=== PATIENT | female | born 2005 | race Caucasian/White ===

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

== ENCOUNTER 2024-11-22 15:59 | Emergency (ER) | payer MEDICARE, MEDICAID, SELFPAY ==
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
[2024-11-22 16:15] VITALS: BP 139/84; PULSE 76; RESP 18; TEMP 36.6; O2SAT 100; BMI 18.8
[2024-11-22 16:30] VITALS: BP 131/84; PULSE 79; O2SAT 100
[2024-11-22] MEDS: ACETAMINOPHEN 500MG TAB 1000 MG PO (16:38)
[2024-11-22] MEDS: IBUPROFEN 400 MG TABLET 800 MG PO (16:38)
[2024-11-22] MEDS: METHOCARBAMOL 500MG TABLET 500 MG PO (16:38)
[2024-11-22] MEDS: predniSONE 20MG TAB 60 MG PO (16:39)
[2024-11-22] MEDS: LIDOCAINE 5% TRANSDERMAL PATCH 1 EACH TD (16:39)
--- NOTE | 2024-11-22 16:47 | CT_ITS ---
PROCEDURE INFORMATION: Exam: CT Thoracic Spine Without Contrast Exam date and time: 11/22/2024 5:51 PM Age: 19 years old Clinical indication: Pain in thoracic spine; Additional info: Back pain TECHNIQUE: Imaging protocol: Computed tomography of the thoracic spine without contrast. Radiation optimization: All CT scans at this facility use at least one of these dose optimization techniques: automated exposure control; mA and/or kV adjustment per patient size (includes targeted exams where dose is matched to clinical indication); or iterative reconstruction. COMPARISON: CR XR CHEST 2V 04/25/2019 9:41 PM FINDINGS: Bones/joints: Multiple Schmorl's nodes are present throughout the visualized thoracolumbar spine. Mild degenerative changes are also present manifest by anterior marginal osteophytes, most prominent at the T8-9 level. Posterior marginal osteophytes are also present at the T11-12 level. Vertebral body heights are intact. Posterior mild marginal osteophytes at the T11-12 level produce mild ventral effacement upon the thecal sac and minor central canal stenosis. There is no evidence of acute fracture. Mild degenerative changes involve the visualized lower cervical spine. No large focal disc protrusion. No significant central canal stenosis. Soft tissues: No focal soft tissue hematomas. No significant soft tissue edema. Lungs: Minor small nonspecific ground-glass opacity involves the inferolateral right lower lobe anteriorly. There is a 6 mm ground-glass nodular density in the right lower lobe laterally seen on series 3, image 89 and series 10/1 image 62 and 63. There is a 2.5 mm nodule in the right lower lobe seen on series 3, image 63. There is a 4.4 mm nodule in the right lower lobe seen on series 1001, image 54. The remainder of the visualized lungs are otherwise clear. Pleural spaces: There are no pleural effusions. Heart: The visualized portions of the heart are unremarkable. There is no evidence of pericardial fluid collections. Thyroid: The visualized thyroid gland is normal. Stomach and bowel: The visualized intra-abdominal structures are normal. IMPRESSION: 1. 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 2. Posterior mild marginal osteophytes at the T11-12 level produce mild ventral effacement upon the thecal sac and minor central canal stenosis. 3. Minor small nonspecific ground-glass opacity involves the inferolateral right lower lobe anteriorly. 4. A few small nodular densities in the visualized lung bases. If the patient does not have known cancer, follow up should be based on clinical information because of the low risk of cancer in this age group. (Reference: Mercedez) References: Mercedez Ratliff, et al. Guidelines for Management of Incidental Pulmonary Nodules Detected on CT Images: From the Fleischner Society 2017. Radiology. 2017;284(1):228-243.
[2024-11-22 17:38] LABS: Urine Pregnancy, HCG Qual. Negative (Negative)
[2024-11-22 19:34] VITALS: BP 131/84; PULSE 64; RESP 20; TEMP 36.9; O2SAT 100
== END 2024-11-22 19:37 | disposition home or self-care (01) ==
PROVIDERS: Physician Assistant; Emergency Provider Emergency Medicine
DX: M54.6 Pain in thoracic spine (principal)
CPT/HCPCS: 72128; 81025; 99284

== ENCOUNTER 2025-05-02 17:45 | Emergency (ER) | payer MEDICARE, SELFPAY ==
--- OUTSIDE RECORDS SUMMARY | 2025-04-20 14:00 | XMS_ITS | Encounter Summary ---
Author Organization [place] [address] Care Team Providers Care Appetizer Packer Name Role Phone Tessa Gonzalez APRN Primary Care Provider [phone] Reason for Referral * Ultrasound (Routine) - Pending Review Specialty Diagnoses / Procedures Referred By Contac t Referred To Contact Diagnoses 12 weeks gestation of Procedures PN US OB < 14 WEEKS SINGLE OR FIRST GESTATION Tessa Gonzalez APRN [address] [place] [address] Phone: tel: fax: Referral ID Status Reason Start Date Expiration Date V isits Requested Visits Authorized [id number] Pending Review 04/20/2025 04/20/2026 1 1 Reason for Visit * Reason Comments Nausea Emesis Encounter Details Date Type Department Care Team (Late st Contact Info) Description 04/20/2025 2:00 PM EDT Office Visit [facility] [address] [place] [phone] Tessa Gonzalez APRN [address] [place] [id number] 12 weeks gestation of (Primary Dx); Amenorrhea; Chronic midline thoracic back pain; Moderate intellectual disabilities Social History Tobacco Use Types Packs/Day Years Used Date Smoking Tobacco: Never Passive Smoke Exposure: Yes Smokeless Tobacco: Never Alcohol Use Standard Drinks/Week Comments No 0 (1 standard drink = 0.6 oz pur e alcohol) PHQ-2 Answer Date Recorded PHQ-2 Total Score 0 02/29/2024 Sexually Active Control Partners Comments Never Comments No Sex and Gender Information Value Date Recorded Sex Assigned at Not on file Legal Sex Female 6:39 AM EDT Gender Identity Not on file Sexual Orientation Not on file documented as of this encounter Last Filed Vital Signs Vital Sign Reading Time Taken Comments Blood Pressure 139/85 04/20/2025 2:24 PM EDT Pulse 83 04/20/2025 2:24 PM EDT Temperature 36.5 C (97.7 F) 04/20/2025 2:24 PM EDT Respiratory Rate 18 04/20/2025 2:24 PM EDT Oxygen Saturation 99% 04/20/2025 2:24 PM EDT Inhaled Oxygen Concentration - - Weight 57.2 kg (126 lb) 04/20/2025 2:24 PM EDT Height - - Body Mass Index - - documented in this encounter Ordered Prescriptions Prescription Sig Dispense Quantity Refills Last Filled Start Date End Date pyridoxine, vitamin B6, (B-6) 50 mg Oral TabletIndications: 12 weeks gestation of Take 1 Tablet by mouth every 6 hours as needed for Nausea. 30 Tablet 1 04/20/2025 acetaminophen 325 mg Oral TabIndications:Chr onic midline thoracic back pain Take 2 Tablets by mouth every 4 hours as needed for Pain. 60 Tablet 2 04/20/2025 documented in this encounter Progress Notes * Tessa Gonzalez APRN - 04/20/2025 2:00 PM EDTAssociated Problem(s): Chronic midline thoracic back pain Advised against NSAID use d/t . Rx for tylenol to use as needed Orders: acetaminophen 325 mg Oral Tab; Take 2 Tablets by mouth every 4 hours as needed for Pain. * Tessa Gonzalez APRN - 04/20/2025 2:00 PM EDT Assessment & Plan Amenorrhea LMP 6/5/25 +POCT preg test Orders: POCT URINE TELCOR 12 weeks gestation of -unplanned , not sure if this is welcomed as it comes a shock. They would like to further discuss as a family. They would consider adoption. In the meantime, I will reach out to her psychologist who completed her evaluation two years ago to get their input if she is able to make informed decisions and consents. -although she does have intellectual disabilities, per father, she is her own legal guardian at this time. -will check labs -start PNV -b6 as needed -get ultrasound -get establish with OB. Orders: SCREEN W/ CBC WITH AUTO DIFF; Future PN US OB < 14 WEEKS SINGLE OR FIRST GESTATION; Future pyridoxine, vitamin B6, (B-6) 50 mg Oral Tablet; Take 1 Tablet by mouth every 6 hours as needed forNausea. ACUTE HEPATITIS PANEL; Future HIV AG/AB; Future Chronic midline thoracic back pain Advised against NSAID use d/t . Rx for tylenol to use as needed Orders: acetaminophen 325 mg Oral Tab; Take 2 Tablets by mouth every 4 hours as needed for Pain. Moderate intellectual disabilities Per pt father, she is her own legal guardian Will reach out to her psychologist who performed her evaluation two years ago to get their opinion if she is capable of making informed consents and decisions. Orders: SCREEN W/ CBC WITH AUTO DIFF; Future Progress Note: Vitals: 04/20/25 1424 BP: (!) 139/85 Pulse: 83 Resp: 18 Temp: 97.7 ??F (36.5 ??C) TempSrc: Forehead SpO2: 99% Weight: 126 lb (57.2 kg) There is no height or weight on file to calculate BMI. SUBJECTIVE: Chief Complaint Patient presents with Nausea Emesis HPI: Patient presents to the office today with her father for evaluation of nausea for several days and intermittent vomiting these past two days. Denies UTI sx LMP 01/26/25. Usually has monthly cycles. Is sexually active with a 75 year family friend. Not on control. Did not think about . Does have intellectual disabilities. On disability Can't read. Father is the payee for disability Monse is her own guardian. Review of Systems Constitutional: Negative for fever. HENT: Negative for congestion. Respiratory: Negative for cough, shortness of breath and wheezing. Cardiovascular: Negative for chest pain, palpitations and leg swelling. Gastrointestinal: Positive for nausea and vomiting. Negative for abdominal pain and diarrhea. Skin: Negative for rash and wound. Hematological: Negative for adenopathy. Does not bruise/bleed easily. OBJECTIVE: Results for orders placed or performed in visit on 04/20/25 SCREEN W/ CBC WITH AUTO DIFF Narrative The following orders were created for panel order SCREEN W/ CBC WITH AUTO DIFF. Procedure Abnormality Status --------- ------ ABORH[[id number]] Final result ANTIBODY SCREEN IGG[[id number]] Final result CBC WITH DIFF[[id number]] Abnormal Final result HEPATITIS B SURFACE ANTIGEN[[id number]] Normal Final result RUBELLA ANTIBODY IGG[[id number]] Final result SYPHILIS SCREEN WITH REF...[[id number]] Normal Final result BB HISTORY CHECK[[id number]] Final result Please view results for these tests on the individual orders. ACUTE HEPATITIS PANEL Result Value Ref Range Hep Bs Ag Non-Reactive Non-Reactive Hep B Core IgM Non-Reactive Non-Reactive Hep A IgM Non-Reactive Non-Reactive Hep C Ab Non-Reactive Non-Reactive Narrative Test performed using [employer] electrochemiluminescence immunassay (ECLIA). HIV AG/AB Result Value Ref Range HIV Ag/AB Non-Reactive Non-Reactive Narrative Test performed using [employer] electrochemiluminescence immunassay (ECLIA). CBC WITH DIFF Result Value Ref Range WBC 8.5 3.7 - 10.3 x10(3)/mcL RBC 5.24 (H) 3.90 - 5.20 x10(6)/mcL Hgb 15.5 11.2 - 15.7 g/dL Hct 45.4 (H) 34.0 - 45.0 % MCV 86.6 80.0 - 100.0 fL MCH 29.6 26.0 - 34.0 pg MCHC 34.1 30.7 - 35.5 g/dL RDW 12.2 <=14.9 % Platelet 250 155 - 369 x10(3)/mcL MPV 11.7 8.8 - 12.5 fL Neut Percent 69.0 % Imm Gran% 0.4 % Lymph Percent 21.8 % [place] Percent 5.0 % Eos Percent 3.3 % Baso Percent 0.5 % Neut # 5.9 1.6 - 6.1 x10(3)/mcL IMMGRAN# 0.0 0.0 - 0.1 x10(3)/mcL Lymph # 1.9 1.2 - 3.9 x10(3)/mcL [place] # 0.4 0.3 - 0.9 x10(3)/mcL Eos# 0.3 0.0 - 0.5 x10(3)/mcL Baso # 0.0 0.0 - 0.1 x10(3)/mcL HEPATITIS B SURFACE ANTIGEN Result Value Ref Range Hep Bs Ag Non-Reactive Non-Reactive Narrative Test performed using [employer] electrochemiluminescence immunassay (ECLIA). RUBELLA ANTIBODY IGG Result Value Ref Range Rubella IgG 0.908 Index Value SYPHILIS SCREEN WITH REFLEX RPR QUANT Result Value Ref Range Trep Ab Index 0.04 <=0.99 Index Value POCT URINE TELCOR Result Value Ref Range Preg Test, Ur Positive ABORH Result Value Ref Range ABORH Int A POS ANTIBODY SCREEN IGG Result Value Ref Range ABSC IgG Int Negative BB HISTORY CHECK Result Value Ref Range BB HISTORY CHECK (1) No Previous History Physical Exam HENT: Head: Normocephalic and atraumatic. Cardiovascular: Rate and Rhythm: Normal rate and regular rhythm. Heart sounds: Normal heart sounds. Pulmonary: Effort: Pulmonary effort is normal. Breath sounds: Normal breath sounds. Abdominal: Palpations: Abdomen is soft. Tenderness: There is no abdominal tenderness. Neurological: Mental Status: She is alert and oriented to person, place, and time. Psychiatric: Mood and Affect: Mood normal. Thought Content: Thought content normal. documented in this encounter Plan of Treatment Upcoming Encounters Date Type Department Care Team (Late st Contact Info) Description 05/25/2025 2:20 PM EDT ROUTINE FOLLOW UP OB VISIT [facility] [address] [place], [place] [phone] Mayi Downs, DO [address] [place] [id number] Scheduled Orders Name Type Priority Associated Diagnoses Orde r Schedule PN US OB < 14 WEEKS SINGLE OR FIRST GESTATION Imaging Routine 12 weeks gestation of 1 Occurrences starting 04/20/2025 until 04/20/2026 documented as of this encounter Goals Goal Patient Goal Type Associated Problems Recent Progress Patient-Stated? Author Maintain a healthy diet, exercise regularly and maintain an ideal body weight General No Tessa Gonzalez APRN documented as of this encounter Procedures Procedure Name Priority Date/Time Associated Diagnosis Comments HIV AG/AB Routine 04/20/2025 3:08 PM EDT 12 weeks gestation of BB HISTORY CHECK Routine 04/20/2025 3:08 PM EDT 12 weeks gestation of Moderate intellectual disabilities SYPHILIS SCREEN WITH REFLEX RPR QUANT Routine 04/20/2025 3:08 PM EDT 12 weeks gestation of Moderate intellectual disabilities SCREEN W/ CBC WITH AUTO DIFF Routine 04/20/2025 3:08 PM EDT Moderate intellectual disabilities ACUTE HEPATITIS PANEL Routine 04/20/2025 3:08 PM EDT 12 weeks gestation of ABORH Routine 04/20/2025 3:08 PM EDT 12 weeks gestation of Moderate intellectual disabilities RUBELLA ANTIBODY IGG Routine 04/20/2025 3:08 PM EDT 12 weeks gestation of Moderate intellectual disabilities HEPATITIS B SURFACE ANTIGEN Routine 04/20/2025 3:08 PM EDT 12 weeks gestation of Moderate intellectual disabilities CBC WITH DIFF Routine 04/20/2025 3:08 PM EDT 12 weeks gestation of Moderate intellectual disabilities ANTIBODY SCREEN IGG Routine 04/20/2025 3:08 PM EDT 12 weeks gestation of Moderate intellectual disabilities POCT URINE TELCOR Routine 04/20/2025 2:31 PM EDT Amenorrhea documented in this encounter Results * BB HISTORY CHECK (04/20/2025 3:08 PM EDT) BB HISTORY CHECK (1) No Previous History 04/20/2025 8:04 PM EDT [facility] BLOOD [facility] Blood VENOUS BLOOD / Unknown Venipuncture / Unknown 04/20/2025 3:08 PM EDT 04/20/2025 3:08 PM EDT [facility] BLOOD BANK ORDERABLES Final Result Performing Organization Address [facility] de Phone Number [facility] [place] [address] * SYPHILIS SCREEN WITH REFLEX RPR QUANT (04/20/2025 3:08 PM EDT) Pathologist [facility] Trep Ab Index 0.04 <=0.99 Index Value 04/20/2025 9:19 PM EDT [facility] Comment: < 1.00 - Non-Reactive >=1.00 - Reactive NOTE: All reactive results will be reflexed to Quantitative Non-Treponemal(RPR)test. Blood VENOUS BLOOD / Unknown Venipuncture / Unknown 04/20/2025 3:08 PM EDT 04/20/2025 3:08 PM EDT [facility] [place] CHEMISTRY ORDERABLES Final Result Performing Organization Address [facility] Co de Phone Number [facility] [address] [facility], [place] [address] * RUBELLA ANTIBODY IGG (04/20/2025 3:08 PM EDT) Pathologist [facility] Rubella IgG 0.908 Index Value 04/20/2025 11:18 PM EDT [facility] Comment: < 0.90 - Negative No significant level of detectable rubella IgG Antibody (Presumed Non-Immune) 0.90 to 0.99 - Equivocal Repeat testing in 10-14 days is recommended > or = 1.00 - Positive Previous exposure or vaccination (Immune) Note: The magnitude of the measured result is not indicative of the amount of antibody present. Blood VENOUS BLOOD / Unknown Venipuncture / Unknown 04/20/2025 3:08 PM EDT 04/20/2025 3:08 PM EDT [facility] IMMUNOLOGY ORDERABLES Final Result Performing Organization Address [facility] Co de Phone Number [address] , [place] [address] * HEPATITIS B SURFACE ANTIGEN (04/20/2025 3:08 PM EDT) [facility] Hep Bs Ag Non-Reacti ve Non-React warren 04/20/2025 9:35 PM EDT [facility] Comment:HBsAg not detected. Does not exclude possibility of exposure to HBV. Blood VENOUS BLOOD / Unknown Venipuncture / Unknown 04/20/2025 3:08 PM EDT 04/20/2025 3:08 PM EDT Narrative [facility] - 04/20/2025 9:35 PM EDT Test performed using [employer] electrochemiluminescence immunassay (ECLIA). [facility] CHEMISTRY ORDERABLES Final Result Performing Organization Address [facility] Co de Phone Number [facility] [address] [facility] , [place] [address] * (ABNORMAL) CBC WITH DIFF (04/20/2025 3:08 PM EDT) [facility] WBC 8.5 3.7 - 10.3 x10(3)/mcL 04/20/2025 8:16 PM EDT [facility] [employer] RBC 5.24(H) 3.90 - 5.20 x10(6)/mcL 04/20/2025 8:16 PM EDT [facility] Hgb 15.5 11.2 - 15.7 g/dL 04/20/2025 8:16 PM EDT [facility] Hct 45.4(H) 34.0 - 45.0 % 04/20/2025 8:16 PM EDT [facility] MCV 86.6 80.0 - 100.0 fL 04/20/2025 8:16 PM EDT [facility] MCH 29.6 26.0 - 34.0 pg 04/20/2025 8:16 PM EDT [facility] MCHC 34.1 30.7 - 35.5 g/dL 04/20/2025 8:16 PM EDT [facility] RDW 12.2 <=14.9 % 04/20/2025 8:16 PM EDT [facility] Platelet 250 155 - 369 x10(3)/mcL 04/20/2025 8:16 PM EDT [facility] MPV 11.7 8.8 - 12.5 fL 04/20/2025 8:16 PM EDT [facility] Neut Percent 69.0 % 04/20/2025 8:16 PM EDT [facility] Comment:Neutrophils equals s egs plus bands Imm Gran% 0.4 % 04/20/2025 8:16 PM EDT [facility] Comment:Automated count of m etamyelocytes, myelocytes and promyelocytes. Lymph Percent 21.8 % 04/20/2025 8:16 PM EDT [facility] [place] Percent 5.0 % 04/20/2025 8:16 PM EDT [facility] Eos Percent 3.3 % 04/20/2025 8:16 PM EDT [facility] Baso Percent 0.5 % 04/20/2025 8:16 PM EDT [facility] Neut # 5.9 1.6 - 6.1 x10(3)/mcL 04/20/2025 8:16 PM EDT [facility] Comment:Neutrophils equals s egs plus bands IMMGRAN# 0.0 0.0 - 0.1 x10(3)/mcL 04/20/2025 8:16 PM EDT [facility] [employer] [facility] Comment:Automated count of m etamyelocytes, myelocytes and promyelocytes. An absolute IG <0.1 is reported as 0.0. Lymph # 1.9 1.2 - 3.9 x10(3)/mcL 04/20/2025 8:16 PM EDT [facility] [place] # 0.4 0.3 - 0.9 x10(3)/mcL 04/20/2025 8:16 PM EDT [facility] Eos# 0.3 0.0 - 0.5 x10(3)/mcL 04/20/2025 8:16 PM EDT [facility] Baso # 0.0 0.0 - 0.1 x10(3)/mcL 04/20/2025 8:16 PM EDT [facility] LAB [employer] [facility] Blood VENOUS BLOOD / Unknown Venipuncture / Unknown 04/20/2025 3:08 PM EDT 04/20/2025 3:08 PM EDT [facility] HEMATOLOGY ORDERABLES Final Result [facility] [employer] [facility] [address] [facility], [place] [address] * ANTIBODY SCREEN IGG (04/20/2025 3:08 PM EDT) [facility] ABSC IgG Int Negative 04/20/2025 10:04 PM EDT [facility] BLOOD BANK Blood VENOUS BLOOD / Unknown Venipuncture / Unknown 04/20/2025 3:08 PM EDT 04/20/2025 3:08 PM EDT [email or web address] ORDERABLES Final Result [facility] BLOOD BANK [address] [place] [address] * ABORH (04/20/2025 3:08 PM EDT) Pathologist [facility] ABORH Int A POS 04/20/2025 10:04 PM EDT [facility] BLOOD BANK Blood VENOUS BLOOD / Unknown Venipuncture / Unknown 04/20/2025 3:08 PM EDT 04/20/2025 3:08 PM EDT [facility] BLOOD BANK ORDERABLES Final Result Performing Organization Address [facility] Co de Phone Number [facility] BLOOD BANK [address] [place] [id number] * HIV AG/AB (04/20/2025 3:08 PM EDT) HIV Ag/AB Non-Reacti ve Non-Reacti ve 04/20/2025 9:35 PM EDT [facility] [employer] [facility] Comment:Negative for HIV-1 a ntigen and anti-HIV-1/anti-HIV-2 antibodies. Blood VENOUS BLOOD / Unknown Venipuncture / Unknown 04/20/2025 3:08 PM EDT 04/20/2025 3:08 PM EDT Narrative [facility] [employer] [facility] - 04/20/2025 9:35 PM EDT Test performed using [employer] electrochemiluminescence immunassay (ECLIA). [facility] IMMUNOLOGY ORDERABLES Final Result Performing Organization Address [facility] Co de Phone Number [facility] [employer] [address] [facility], [place] [address] * ACUTE HEPATITIS PANEL (04/20/2025 3:08 PM EDT) Hep Bs Ag Non-Reacti ve Non-React warren 04/20/2025 9:35 PM EDT [facility] [employer] [facility] Comment:HBsAg not detected. Does not exclude possibility of exposure to HBV. Hep B Core IgM Non-Reacti ve Non-React warren 04/20/2025 9:35 PM EDT [facility] Hep A IgM Non-Reacti ve Non-React warren 04/20/2025 9:35 PM EDT [facility] Hep C Ab Non-Reacti ve Non-React warren 04/20/2025 9:35 PM EDT [facility] Comment:No antibodies to HCV detected. Does not exclude possibility of exposure to HCV. Blood VENOUS BLOOD / Unknown Venipuncture / Unknown 04/20/2025 3:08 PM EDT 04/20/2025 3:08 PM EDT Narrative [facility] [employer] - 04/20/2025 9:35 PM EDT Test performed using [employer] electrochemiluminescence immunassay (ECLIA). Tessa Gonzalez APRN CHEMISTRY ORDERABLES Final Result [facility] [employer] [address] [facility] , [place] [address] * POCT URINE TELCOR (04/20/2025 2:31 PM EDT) Preg Test, Ur Positive 04/20/2025 2:34 PM EDT [facility] [place] Urine STRUCTURE OF URINARY TRACT PROPER / Unknown 04/20/2025 2:31 PM EDT 04/20/2025 2:34 PM EDT Tessa Gonzalez APRN POINT OF CARE TEST ORDERABL ES Final Result Performing Organization Address [facility] Co de Phone Number [facility] [address] [place] [address] 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 DELETE-Therapy completed 03/01/2024 04/20/2025 methocarbamoL (ROBAXIN) 750 mg Oral Tablet Take 750 mg by mouth every 6 hours as needed. for muscle spasm DELETE-Therapy completed 11/22/2024 04/20/2025 documented as of this encounter Care Teams Appetizer Packer Relationship Specialty Start Date End Date Tessa Gonzalez [place] [place] [address] PCP - General Nurse Practitioner-Family 05/01/21 documented as of this encounter
--- OUTSIDE RECORDS SUMMARY | 2025-04-27 15:20 | XMS_ITS | Encounter Summary ---
Author Organization [place] [address] Care Team Providers Care Reed Cleaner Name Role Phone Tessa Gonzalez APRN Primary Care Provider [phone] Reason for Referral * Ultrasound (Urgent) - Pending Review Specialty Diagnoses / Procedures Referred By Contac t Referred To Contact Diagnoses Encounter for supervision of normal first , first trimester Procedures PN US < 14 WK W TRANSVAGINAL Mayi Downs DO [address] [place] [address] Phone: tel: fax: Referral ID Status Reason Start Date Expiration Date V isits Requested Visits Authorized [id number] Pending Review 04/27/2025 04/27/2026 1 1 * Consultation (Routine) - Pending Review Specialty Diagnoses / Procedures Referred By Contac t Referred To Contact Genetics Diagnoses Encounter for supervision of normal first , first trimester Procedures [place] OFFICE/OUTPATIENT NEW MODERATE MDM 45 MINUTES Mayi Downs DO [address] [place] [address] Phone: tel: fax: [facility] [address] [place] [address] Phone: tel: fax: Referral ID Status Reason Start Date Expiration Date V isits Requested Visits Authorized [id number] Pending Review 04/27/2025 04/27/2026 99 99 Question Answer Is this for the Multi-Cancer Early Detection blood test? No Comments Patient interested in genetic screening for Reason for Visit * Reason Comments Routine Visit Encounter Details Date Type Department Care Team (Late st Contact Info) Description 04/27/2025 3:20 PM EDT INITIAL VISIT SEP Erik [address] [employer] [place] [phone] Mayi Downs DO [address] [place] [id number] Encounter for supervision of normal first , first trimester (Primary Dx); Positive test; Rubella non-immune status, antepartum; Learning disability; Chronic midline low back pain without sciatica; High risk social situation Social History Tobacco Use Types Packs/Day Years Used Date Smoking Tobacco: Never Passive Smoke Exposure: Yes Smokeless Tobacco: Never Tobacco Cessation:Counseling Given: Not Answered Alcohol Use Standard Drinks/Week Comments No 0 (1 standard drink = 0.6 oz pur e alcohol) PHQ-2 Answer Date Recorded PHQ-2 Total Score 0 02/29/2024 Sexually Active Control Partners Comments Never Comments Yes Sex and Gender Information Value Date Recorded Sex Assigned at Not on file Legal Sex Female 6:39 AM EDT Gender Identity Not on file Sexual Orientation Not on file documented as of this encounter Last Filed Vital Signs Vital Sign Reading Time Taken Comments Blood Pressure 128/70 04/27/2025 2:44 PM EDT Pulse 103 04/27/2025 2:44 PM EDT Temperature 37.3 C (99.1 F) 04/27/2025 2:44 PM EDT Respiratory Rate 18 04/27/2025 2:44 PM EDT Oxygen Saturation 99% 04/27/2025 2:44 PM EDT Inhaled Oxygen Concentration - - Weight 57.2 kg (126 lb) 04/27/2025 2:44 PM EDT Height 157.5 cm (5' 2 ) 04/27/2025 2:44 PM EDT Body Mass Index 23.05 04/27/2025 2:44 PM EDT documented in this encounter Progress Notes * Mayi Downs DO - 04/27/2025 4:58 PM EDTAssociated Problem(s): Rubella non-immune status, antepartum Will need vaccination after * Mayi Downs DO - 04/27/2025 3:20 PM EDT Initial Visit Care Subjective PATIENT: Monse Tolliver : 2005 Monse Tolliver is a 20 y.o. female presenting for follow-up obstetrical visit. She is a . Patient's last menstrual period was 01/26/2025. Discussed with patient today her degree of intellectualdisability. Patient reports father has control of her finances which she makes all her own day-to-day decisions and medical decisions according to her and her mother who is in the room today. Father of the baby is 78 years old and mother reports that he is well has intellectual disability. Patient reported that she wanted to have sex but did not want to have sex as often as he did. She then reports during sexual encounter she asked patient if he had a condom on and he said yes but now patient is unsure if that was true. She reports there would be time frames that she would tell him to stop and he would during their encounters. It seems to be unclear at this time whether patient was truly consenting. Patient reports her last menstrual cycle was about 3 months ago and states that she thinksshe is about 3 months along. Objective BP 128/70 Pulse 103 Temp 99.1 ??F (37.3 ??C) (Temporal) Resp 18 Ht 5' 2 (1.575 m) Wt 126lb (57.2 kg) LMP 01/26/2025 SpO2 99% No BMI 23.05 kg/m?? Cardiovascular: Normal rate Respiratory: Normal effort MSK: No pitting edema noted FHT: Unable to find in office Urine dipstick Results for orders placed or performed in visit on 04/27/25 CHLAMYDIA/GC Specimen: Urine, Random Narrative The following orders were created for panel order CHLAMYDIA/GC. Procedure Abnormality Status --------- ------ CHLAMYDIA/GC BY [facility][[id number]] In process Please view results for these tests on the individual orders. SEP URINALYSIS POC Result Value Ref Range UA Color POC Yellow Color UA Appear POC Clear Clear UA Gluc POC Negative Negative mg/dL UA Bili POC Negative Negative UA Ketones POC Negative Negative mg/dL UA SG POC 1.020 1.001 - 1.035 no units UA Blood POC Negative Negative UA pH POC 7.0 5.0 - 8.0 pH UA Protein POC Negative Negative mg/dL UA Urobilinogen POC 0.2 0.2, 1.0 UA Nitrite POC Positive (A) Negative UA Leuk Est POC Trace (A) Negative Current Labs and Ultrasound Recent Results (from the past 36 weeks) SYPHILIS SCREEN WITH REFLEX RPR QUANT Collection Time: 04/20/25 3:08 PM Result Value Ref Range Trep Ab Index 0.04 <=0.99 Index Value RUBELLA ANTIBODY IGG Collection Time: 04/20/25 3:08 PM Result Value Ref Range Rubella IgG 0.908 Index Value HEPATITIS B SURFACE ANTIGEN Collection Time: 04/20/25 3:08 PM Result Value Ref Range Hep Bs Ag Non-Reactive Non-Reactive Narrative Test performed using [employer] electrochemiluminescence immunassay (ECLIA). ANTIBODY SCREEN IGG Collection Time: 04/20/25 3:08 PM Result Value Ref Range ABSC IgG Int Negative ABORH Collection Time: 04/20/25 3:08 PM Result Value Ref Range ABORH Int A POS HIV AG/AB Collection Time: 04/20/25 3:08 PM Result Value Ref Range HIV Ag/AB Non-Reactive Non-Reactive Narrative Test performed using [employer] electrochemiluminescence immunassay (ECLIA). The following are the results for your labs from the Office Visit encounter on 04/20/25: 1. HIV AG/AB Result Value Ref Range HIV Ag/AB Non-Reactive Non-Reactive Narrative Test performed using [employer] electrochemiluminescence immunassay (ECLIA). 2. BB HISTORY CHECK Result Value Ref Range BB HISTORY CHECK (1) No Previous History 3. SYPHILIS SCREEN WITH REFLEX RPR QUANT Result Value Ref Range Trep Ab Index 0.04 <=0.99 Index Value 4. SCREEN W/ CBC WITH AUTO DIFF Narrative The following orders were created for panel order SCREEN W/ CBC WITH AUTO DIFF. Procedure Abnormality Status --------- ------ ABORH[[id number]] Final result ANTIBODY SCREEN IGG[[id number]] Final result CBC WITH DIFF[[id number]] Abnormal Final result HEPATITIS B SURFACE ANTIGEN[[id number]] Normal Final result RUBELLA ANTIBODY IGG[[id number]] Final result SYPHILIS SCREEN WITH REF...[[id number]] Normal Final result BB HISTORY CHECK[[id number]] Final result Please view results for these tests on the individual orders. 5. ABORH Result Value Ref Range ABORH Int A POS 6. RUBELLA ANTIBODY IGG Result Value Ref Range Rubella IgG 0.908 Index Value 7. HEPATITIS B SURFACE ANTIGEN Result Value Ref Range Hep Bs Ag Non-Reactive Non-Reactive Narrative Test performed using [employer] electrochemiluminescence immunassay (ECLIA). 8. CBC WITH DIFF Result Value Ref Range [...] Gran% 0.4 % Lymph Percent 21.8 % [place] Percent 5.0 % Eos Percent 3.3 % Baso Percent 0.5 % Neut # 5.9 1.6 - 6.1 x10(3)/mcL IMMGRAN# 0.0 0.0 - 0.1 x10(3)/mcL Lymph # 1.9 1.2 - 3.9 x10(3)/mcL [place] # 0.4 0.3 - 0.9 x10(3)/mcL Eos# 0.3 0.0 - 0.5 x10(3)/mcL Baso # 0.0 0.0 - 0.1 x10(3)/mcL 9. ANTIBODY SCREEN IGG Result Value Ref Range ABSC IgG Int Negative Lab Results Component Value Date HEPBSAG Non-Reactive 04/20/2025 HEPBSAG Non-Reactive 04/20/2025 HEPAIGM Non-Reactive 04/20/2025 HEPBIGM Non-Reactive 04/20/2025 HEPCAB Non-Reactive 04/20/2025 No results found for: HGBA1C UDS: No results found for: 6AMHEROIN , AMPHETAMINES , LABBARB , LABBENZ , CANNABINOIDM , COCAINEMETAB , FENTANYL , METHADONEAND , OPIATE , OXYCODONELVL , URINECREATIN Anemia Screening: Lab Results Component Value Date WBC 8.5 04/20/2025 HGB 15.5 04/20/2025 HCT 45.4 (H) 04/20/2025 MCV 86.6 04/20/2025 PLT 250 04/20/2025 Gonorrhea Screening: No results found for: NEISSERIAGON Chlamydia Screening: No results found for: CHLAMYDIATRA Genetic screening: Discussed: Yes Genetic counseling referral made Initial Ultrasound: Date: ordered Need for Rhogam at 28 weeks: Lab Results Component Value Date ABORH A POS 04/20/2025 Rhogam not needed DETECTIVE History OB History Para Term AB Living 1 0 0 0 0 0 SAB IAB Ectopic Multiple Live Births 0 0 0 0 0 # Outcome Date GA Lbr John/2nd Weight Sex Type Anes PTL Lv 1 Current Monse Tolliver is a 20 y.o. female Seen today for her obstetrical visit. Primary OB physician is . She is considered Moderate Risk OB due to the following factors: Assessment Diagnoses and all orders for this visit: Encounter for supervision of normal first , first trimester - HUMAN CHORIONIC GONADOTROPIN QUANTITATIVE; Future - SEP URINALYSIS POC - CHLAMYDIA/GC; Future - AMB REFERRAL TO GENETIC COUNSELING - PN US < 14 WK W TRANSVAGINAL; Future - URINE CULTURE (NO STAIN); Future Positive test - HUMAN CHORIONIC GONADOTROPIN QUANTITATIVE; Future Rubella non-immune status, antepartum Assessment & Plan: Will need vaccination after Learning disability Overview: Father controls finances Chronic midline low back pain without sciatica - XR LUMBAR SPINE AP AND LATERAL; Future High risk social situation Mayi Downs, DO Family Medicine 04/27/2025 documented in this encounter Plan of Treatment Upcoming Encounters Date Type Department Care Team (Late st Contact Info) Description 05/25/2025 2:20 PM EDT ROUTINE FOLLOW UP OB VISIT [facility] [place] [facility] [address] [place], [place] [id number] Mayi Downs DO [address] [place] [address] Scheduled Orders Name Type Priority Associated Diagnoses Orde r Schedule XR LUMBAR SPINE AP AND LATERAL Imaging Routine Chronic midline low back pain without sciatica 1 Occurrences starting 04/27/2025 until 04/27/2026 PN US < 14 WK W TRANSVAGINAL Imaging QUINTIN Encounter for supervision of normal first , first trimester 1 Occurrences starting 04/27/2025 until 04/27/2026 Scheduled Referrals Name Type Priority Associated Diagnoses Orde r Schedule AMB REFERRAL TO GENETIC COUNSELING Outpatient Referral Routine Encounter for supervision of normal first , first trimester Ordered: 04/27/2025 documented as of this encounter Goals Goal Patient Goal Type Associated Problems Recent Progress Patient-Stated? Author Maintain a healthy diet, exercise regularly and maintain an ideal body weight General No eTssa Gonzalez APRN documented as of this encounter Procedures Procedure Name Priority Date/Time Associated Diagnosis Comments HUMAN CHORIONIC GONADOTROPIN QUANTITATIVE Routine 04/27/2025 3:42 PM EDT Positive test Encounter for supervision of normal first , first trimester CHLAMYDIA/GC Routine 04/27/2025 3:25 PM EDT Encounter for supervision of normal first , first trimester CHLAMYDIA/GC BY TMA Routine 04/27/2025 3 :25 PM EDT Encounter for supervision of normal first , first trimester URINE CULTURE (NO STAIN) Routine 04/27/2025 3:25 PM EDT Encounter for supervision of normal first , first trimester SEP URINALYSIS POC Routine 04/27/2025 3: 07 PM EDT Encounter for supervision of normal first , first trimester documented in this encounter Results * (ABNORMAL) HUMAN CHORIONIC GONADOTROPIN QUANTITATIVE (04/27/2025 3:42 PM EDT) Pathologist [facility] [place] Hcg Quant 10,378(H) <5 mIU/mL 04/28/2025 12:30 AM EDT [facility] Blood VENOUS BLOOD / Unknown Venipuncture / Unknown 04/27/2025 3:42 PM EDT 04/27/2025 3:42 PM EDT Narrative [facility] - 04/28/2025 12:30 AM EDT Female (non-): 0-4.9 mIU/mL Female (postmenopausal): 0-8.1 mIU/mL Indeterminate values for (e.g., 5-25 mIU/mL) may be confirmed with a repeat test in 48-72 hours. Values in should double every 2-3 days for the first six weeks. Ingestion of jorge doses of biotin (>5 mg/day) taken within 8 hours of drawing blood sample can interfere with this immunoassay test. us Mayi Downs DO CHEMISTRY ORDERABLES Final R esult [facility] [address] [facility] , [address] [place] [id number] * CHLAMYDIA/GC BY TMA (04/27/2025 3:25 PM EDT) [facility] Chlamydia trachomatis Not Detected Not Detected 04/28/2025 4:05 AM EDT [facility] Neisseria gonorrhoeae Not Detected Not Detected 04/28/2025 4:05 AM EDT [facility] Urine STRUCTURE OF URINARY TRACT PROPER / Unknown 04/27/2025 3:25 PM EDT 04/27/2025 3:25 PM EDT Narrative [facility] - 04/28/2025 4:05 AM EDT Testing methodology is laboratory scientist mediated amplification (TMA) using the Aptima Combo 2 assay from [employer]. A negative result does not completely rule out a Chlamydia trachomatis or Neisseria gonorrhoeae infection due to potential inhibitors or levels present below the limit of detection by this assay. Results are dependent on proper collection and transport of specimen. This test is indicated for medical purposes only and should not be used for legal or forensic purposes. The performance characteristics of this assay were validated by the testing laboratory. This assay is FDA cleared to test the following specimens: clinician-collected endocervical, vaginal, male urethral swab specimens, rectal swabs, and throat/pharyngeal swabs; patient collected vaginal specimens within a clinic setting; Thin Prep Specimens in PreservCyt Solution; and first-stream, unpreserved male and female urine specimens. Detailed methodology is available upon request. us Mayi Downs DO MICROBIOLOGY - GENERAL ORDER [place] Final Result [facility] [address] [facility] , [address] [place], [place] [id number] * (ABNORMAL) URINE CULTURE (NO STAIN) (04/27/2025 3:25 PM EDT) Culture Positive Growth(A) 04/30/2025 10:57 AM EDT [facility] Culture >100,000 CFU/mL Escherichia coli SUSCEPTIBI LITY RESULT 04/30/2025 10:57 AM EDT [facility] Urine STRUCTURE OF URINARY TRACT PROPER / Unknown 04/27/2025 3:25 PM EDT 04/27/2025 3:25 PM EDT Narrative Organism Antibiotic Method Susceptibility Escherichia coli Amikacin SUSCEPTIBILITY RESULT Escherichia coli Amoxicillin/Clavulanate SUSCEPTIBILIT Y RESULT <=8/4 ug/mL: Susceptible Escherichia coli Ampicillin SUSCEPTIBILITY RESULT <=8 ug/mL: Susceptible Escherichia coli Ampicillin/Sulbactam SUSCEPTIBILITY R ESULT <=4/2 ug/mL: Susceptible Escherichia coli Aztreonam SUSCEPTIBILITY RESULT <=4 ug/mL: Susceptible Escherichia coli Cefazolin SUSCEPTIBILITY RESULT <=2 ug/mL: Susceptible Escherichia coli Cefepime SUSCEPTIBILITY RESULT Escherichia coli Cefotaxime SUSCEPTIBILITY RESULT Escherichia coli Cefoxitin SUSCEPTIBILITY RESULT <=8 ug/mL: Susceptible Escherichia coli Ceftazidime SUSCEPTIBILITY RESULT Escherichia coli Ceftazidime/Avibactam SUSCEPTIBILITY RESULT Escherichia coli Ceftolozane/Tazobactam SUSCEPTIBILITY RESULT Escherichia coli Ceftriaxone SUSCEPTIBILITY RESULT Escherichia coli Cefuroxime SUSCEPTIBILITY RESULT Escherichia coli Ciprofloxacin SUSCEPTIBILITY RESULT >2 ug/mL: Resistant Escherichia coli Ertapenem SUSCEPTIBILITY RESULT <=0.5 ug/mL: Susceptible Escherichia coli Gentamicin SUSCEPTIBILITY RESULT <=2 ug/mL: Susceptible Escherichia coli Imipenem SUSCEPTIBILITY RESULT <=1 ug/mL: Susceptible Escherichia coli Levofloxacin SUSCEPTIBILITY RESULT >4 ug/mL: Resistant Escherichia coli Meropenem SUSCEPTIBILITY RESULT <=1 ug/mL: Susceptible Escherichia coli Meropenem/Vaborbactam SUSCEPTIBILITY RESULT Escherichia coli Minocycline SUSCEPTIBILITY RESULT Escherichia coli Moxifloxacin SUSCEPTIBILITY RESULT Escherichia coli Nitrofurantoin SUSCEPTIBILITY RESULT <=32 ug/mL: Susceptible Escherichia coli Piperacillin/Tazobactam SUSCEPTIBILIT Y RESULT <=8 ug/mL: Susceptible Escherichia coli Tetracycline SUSCEPTIBILITY RESULT >8 ug/mL: Resistant Escherichia coli Tigecycline SUSCEPTIBILITY RESULT Escherichia coli Tobramycin SUSCEPTIBILITY RESULT <=2 ug/mL: Susceptible Escherichia coli Trimethoprim/Sulfame tho xazole SUSCEPTIBILITY RESULT 1/19 ug/mL: Susceptible Mayi Downs DO MICROBIOLOGY - GENERAL ORDER [place] Final Result PREFERRED LAB the grafter, for; to (do) Centers [address] [facility] , [place] [address] * (ABNORMAL) SEP URINALYSIS POC (04/27/2025 3:07 PM EDT) UA Color POC Yellow Color 04/27/2025 3:09 PM EDT SEP [place] UA Appear POC Clear Clear 04/27/2025 3:09 PM EDT SEP [place] UA Gluc POC Negative Negative mg/dL 04/27/2025 3:09 PM EDT SEP [place] UA Bili POC Negative Negative 04/27/2025 3:09 PM EDT SEP [place] UA Ketones POC Negative Negative mg/dL 04/27/2025 3:09 PM EDT SEP [place] UA SG POC 1.020 1.001 - 1.035 no units 04/27/2025 3:09 PM EDT SEP [place] UA Blood POC Negative Negative 04/27/2025 3:09 PM EDT SEP [place] UA pH POC 7.0 5.0 - 8.0 pH 04/27/2025 3:09 PM EDT SEP [place] UA Protein POC Negative Negative mg/dL 04/27/2025 3:09 PM EDT SEP [place] UA Urobilinogen POC 0.2 0.2, 1.0 04/27/2025 3:09 PM EDT SEP [place] UA Nitrite POC Positive(A) Negative 3:09 PM EDT SEP [place] UA Leuk Est POC Trace(A) Negative 3:09 PM EDT SEP [place] Urine STRUCTURE OF URINARY TRACT PROPER / Unknown 04/27/2025 3:07 PM EDT 04/27/2025 3:09 PM EDT Mayi Downs DO POINT OF CARE TEST ORDERABLE S Final Result [facility] [place] [address] documented in this encounter Visit Diagnoses Diagnosis Encounter for supervision of normal first , first trimester- Primary Positive test examination or test, positive result Rubella non-immune status, antepartum Other specified complication, antepartum Learning disability Other specific developmental learning difficulties Chronic midline low back pain without sciatica High risk social situation Other problems related to lifestyle documented in this encounter Historical Medications * This list may reflect changes made after this encounter. vit [id number] 27 mg iron- 800 mcg Oral TabletIndications: Encounter for supervision of normal first , first trimester Take 1 Tablet by mouth daily. added in this encounter Care Teams Reed Cleaner Relationship Specialty Start Date End Date Tessa Gonzalez [place] [address] [place] [address] PCP - General Nurse Practitioner-Family 05/01/21 documented as of this encounter
[2025-05-02 17:48] VITALS: BP 142/82; PULSE 88; RESP 18; TEMP 36.9; O2SAT 100; BMI 24.6
--- NOTE | 2025-05-02 18:07 | ED_ITS ---
Discharge Plan Disposition Patient Disposition: Home, Self-Care Condition: Good Prescriptions Prescriptions: New misoprostol [Cytotec] 200 mcg tablet 1,200 mcg vaginal Q12H Qty: 6 0RF oxycodone 5 mg tablet 5 mg PO DAILY Qty: 3 0RF No Action ondansetron 4 mg tablet,disintegrating 4 mg PO Q8H PRN (Reason: nausea and vomiting) Qty: 10 0RF methocarbamol 750 mg tablet 750 mg PO Q6H PRN (Reason: muscle spasm) Qty: 20 0RF Referrals Follow up/Referrals: Janis Campbell DO [Staff Physician, [employer]] - See instructions Provider,Referral, MD [Primary Care Provider, Medical] - See instructions Activity Restrictions/Add. Instructions Additional Instructions/Restrictions: You can call Dr. Campbell in the morning to schedule follow-up. You should take 600 mg or 3 tablets vaginally at home and if you develop bleeding you do not need to take the additional dose. If you do not develop bleeding after the initial 600 mg take the additional 3 tablets vaginally in 4 hours. You should expect bleeding and cramping. You can take Tylenol and Motrin as needed. I have sent you with additional pain medications if needed for pain control which you can take for break through pain. Clinical Impressions Clinical Impression: Incomplete miscarriage Print Language Print Language: Mohawk Discharge ED Provider: Lupe Christian General Adult HPI General Chief complaint: Vaginal Bleeding Stated complaint: 12 weeks and bleeding Time Seen by Provider: 05/02/25 17:50 Mode of Arrival: Ambulatory Source of Information: Patient and Parent(s) Description of Symptoms (Recalled from ER Triage Doc. by RN): jamee presents to the ED for evaluation of vaginal bleeding. patient is currently 12 weeks . The bleeding started yesterday. Patient endorses going through one peripad every couple hours. The patient denies passing blood clots. Patient also endorses lightheadedness. History of Present Illness HPI narrative: Patient is a 20-year-old female who is a G1, P0 who presented to the emergency department with hematuria and vaginal bleeding. Patient states that her last menstrual period was January, patient states that she is about 12 weeks . Patient states that she had bleeding that started today. Patient states that she was recently seen by her OB doctor 1 week ago was given oral antibiotics for urinary tract infection. Patient states that she has not had an ultrasound done. Patient denies any medical problems. Denies any urinary symptoms. Related Data Previous Rx's ?Medication ?Instructions ?Recorded ondansetron 4 mg disintegrating 4 mg PO Q8H PRN nausea and 07/09/22 tablet vomiting #10 tabs methocarbamol 750 mg tablet 750 mg PO Q6H PRN muscle s pasm #20 11/22/24 tabs misoprostol 200 mcg tablet 1,200 mcg (6 x 200 mcg) vag inal 05/02/25 (Cytotec) Q12H #6 tabs oxycodone 5 mg tablet 5 mg PO DAILY #3 tabs Allergies Allergy/AdvReac Type Severity Reaction Status Date / Time No Known Allergies Allergy Verified 07/02/22 15:55 [facility] Disclaimer: The information contained in this section may have been updated after the patient was seen, as this information can be updated by other users. Medical History (Updated 05/02/25 @ 22:34 by Lupe Christian DO) No significant past medical history Social History Smoking Status: Never smoker alcohol intake: never current occupational status: student Travel in the last 8 weeks?: None Have you lived/traveled outside [place] in past 30 days?: No Contact w/someone who lives/traveled outside US past 30 days?: No Exposure to someone with infectious disease in past 14 days?: No Do you have a fever (greater than 100.4 F or 38 C)?: No Have you tested positive for COVID-19?: No Exposed to someone with COVID-19 in past 14 days?: No Do you have a sore throat?: No Do you have a cough?: No Do you have any weakness?: No Do you have any diarrhea?: No Are you experiencing any unusual bleeding?: No Do you have any muscle aches/pain?: No Do you have any abdominal pain?: No Are you experiencing loss of taste or smell?: No Other Medical History Have you received the Flu Vaccine for this season: No Have you received the Pneumonia Vaccine: No ROS Obtained: Yes All systems reviewed & no additional complaints except as documented and Yes Systems reviewed as appropriate & no additional complaints except as documented Physical Exam General General appearance: alert and in no apparent distress Head Head exam: atraumatic, normocephalic and normal inspection Eye Eye exam: Present normal appearance, PERRL and EOMI; Absent scleral icterus ENT ENT exam: Present normal exam and normal external ear exam Neck Neck exam: Present normal inspection and full ROM Chest Chest inspection: Present normal inspection and symmetric chest wall rise Respiratory Respiratory exam: Present normal lung sounds bilaterally; Absent respiratory distress or wheezes Cardiovascular Cardiovascular exam: Present regular rate, normal rhythm and normal heart sounds Abdominal Exam Abdominal exam: Present soft and distention; Absent tenderness, guarding or rebound Extremities Exam Extremities exam: Present normal inspection and full ROM Back Exam Back exam: Present normal inspection and full ROM Neurological Exam Neurological exam: Present alert and oriented X3 Psychiatric Psychiatric exam: Present normal affect and normal mood Skin Skin exam: Present warm and dry Medical Decision Making Medical Records Medical records reviewed: Yes I reviewed the patient's medical records. Screening: Per USPSTF and CDC recommendations, given the prevalence of disease in our region, it is our hospital?s policy to screen for HIV and viral Hepatitis for all patients aged 18 and over and those with ongoing risk factors. Jose Inquiry Pt receiving controlled substance: No Vital Signs: 05/02/25 17:48 05/02/25 20:00 05/02/25 20:30 Temperature 98.5 F Temperature Source Temporal Artery Scan Pulse Rate 75 85 Pulse Rate [Right Radial] 88 Respiratory Rate 18 15 17 Blood Pressure 129/95 H 135/80 Blood Pressure [Right Arm] 142/82 H Blood Pressure Mean 94 Blood Pressure Mean [Right Arm] 102 Blood Pressure Source Blood Pressure Source [Right Arm] Automatic Cuff Blood Pressure Position Blood Pressure Position [Right Arm] Sitting 02 Sat by Pulse Oximetry 100 100 99 Oxygen Delivery Method Room Air Room Air 05/02/25 21:30 05/02/25 22:38 Temperature 98.7 F Temperature Source Oral Pulse Rate 86 74 Pulse Rate [Right Radial] Respiratory Rate 13 16 Blood Pressure 137/94 H 128/74 Blood Pressure [Right Arm] Blood Pressure Mean Blood Pressure Mean [Right Arm] Blood Pressure Source Automatic Cuff Blood Pressure Source [Right Arm] Blood Pressure Position Supine Blood Pressure Position [Right Arm] 02 Sat by Pulse Oximetry 98 Oxygen Delivery Method Room Air Room Air Lab Data Lab results reviewed: Yes I reviewed the patient's lab results. Lab Results 05/02/25 18:30: WBC 9.4, RBC 4.66, Hgb 14.1, Hct 39.5, MCV 84.8, MCH 30.3, MCHC 35.7 H, RDW 11.8, Plt Count 249, MPV 10.3, Neut % (Auto) 68.6, Lymph % (Auto) 22.4, [place] % (Auto) 4.2, Eos % (Auto) 4.2, Baso % (Auto) 0.3, Neut # (Auto) 6.5, Lymph # (Auto) 2.1, [place] # (Auto) 0.4, Eos # (Auto) 0.4, Baso # (Auto) 0.0, PT 11.4, INR 1.03, Sodium 138, Potassium 3.8, Chloride 105, Carbon Dioxide 24, Anion Gap 12.8, BUN 7, Creatinine 0.60, Estimated Creat Clear 134, Estimated GFR 126, Est GFR ( Amer) 153, Glucose 114 H, Calcium 9.6, Total Bilirubin 0.5, AST 31, ALT 16, Alkaline Phosphatase 52, Total Protein 7.5, Albumin 4.5, Globulin 3.0, Albumin/Globulin Ratio 1.5, HCG, Quant 4479 H 05/02/25 18:40: Urine Color Yellow, Urine Appearance Sl cloudy, Urine pH 6.0, Ur Specific [place] 1.020, Urine Protein Negative, Urine Glucose (UA) Negative, Urine Ketones Negative, Urine Blood 1+ A, Urine Nitrate Negative, Urine Bilirubin Negative, Urine Urobilinogen 2.0, Ur Leukocyte Esterase 1+ A, Urine RBC Occasional, Urine WBC 5-10, Ur Squamous Epith Cells 5-10, Urine Bacteria 2+ 05/02/25 21:04: Blood Type A Positive, Antibody Screen Negative 05/02/25 18:30 05/02/25 18:30 Orders (Tests/Meds): ORDERS Category Date Time Status Type and Screen Stat BBK 05/02/25 21:04 Completed POCUS Point of Care (ER Only) Stat Exams 05/02/25 17:57 Completed CBC w/Auto Diff [Complete Blood Count Auto Diff] Stat Lab 05/02/25 18:30 Completed CMP [Comprehensive Metabolic Panel] Stat Lab 05/02/25 18:30 Completed HCG,Quantitative Stat Lab 05/02/25 18:30 Completed PT INR [Prothrombin Time INR] Stat Lab 05/02/25 18:30 Completed UA [Urinalysis and Microscopic] Stat Lab 05/02/25 18:40 Completed Urine Culture Stat Micro 05/02/25 18:40 Received US OB transvaginal Stat Ultrasound 05/02/25 18:21 Completed Medical Decision Narrative: Patient is an otherwise healthy 20-year-old female who is G1, P0 who presented to the emergency department with vaginal bleeding and hematuria. Patient is approximately 12 weeks by date. Patient has an OB but has not had an ultrasound done. Differential includes but not limited to: Vaginal bleeding in , miscarriage, ectopic , urinary tract infection, pyelonephritis, amongst others. Patient's labs were reviewed and interpreted by myself: CBC showed no leukocytosis, hemoglobin was stable. INR was normal. CMP was unremarkable. Beta-hCG was 4479. UA showed 2+ bacteria, leuk esterase 5-10 white blood cells. Bedside ultrasound was performed by myself which I did see an IUP however there is no evidence of heart rate. Patient's last menstrual period she should be about 12 to 13 weeks by dates therefore this is concerning for possible miscarriage. Formal transvaginal ultrasound was obtained which showed IUP 8 to 9 weeks by size with no FHR. Patient was A positive therefore did not require rhogam. Discussed the case with OB who stated that the patient could undergo surgical versus medical management. After discussion with the patient, she opted for medical management. Patient was sent with Cytotec to be taken starting tomorrow. Patient was given instructions that she may develop cramping and bleeding and this would be expected. Was advised to take Tylenol and Motrin and patient was sent with oxycodone for breakthrough pain. Patient was sent with a referral to gynecology here at [place] for follow-up. Return precautions were discussed and patient was otherwise discharged home in stable condition. Critical Care Critical Care Time Critical Care Time: No
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
--- OUTSIDE RECORDS SUMMARY | 2025-05-02 18:08 | XMS_ITS | Encounter Summary ---
Author Organization [place] [address] [address] Team Prov[address] Care Court Orderly Name Role Phone Tessa Gonzalez APRN Primary Care Provider [phone] Reason for Visit * Reason Onset Date Comments Other 04/28/2025 Patient has mult iple questions about her recent appt - please advise Encounter Details Date Type Department Care Team (Late st Contact Info) Description 04/28/2025 Telephone SEP Naun [address] [place] [address] Tessa Gonzalez APRN [address] [place] [address] Other (Patient has multiple questions about her recent appt - please advise) Social History Tobacco Use Types Packs/Day Years [...] on file documented as of this encounter Miscellaneous Notes * Telephone Encounter - Edith Figueroa MA - 04/28/2025 4:00 PM EDT Called and spoke to father. Instructed since he is not on ICF form we technically cannot give any information out to him. Voiced understanding. Just wanted to know if vascular technician and social workers have been called. * Telephone Encounter - Mayi Downs DO - 04/28/2025 12:11 PM EDT That is a significant amount of questions to answer. Would be best to schedule them for an office visit to discuss all the questions they next week. Briefly, What counselor? If they are referring to the genetic counselor this was discussed with the patient in office and she elected to go see the genetic counselor. If she does not wish to see the genetic counselor then no I do not know what patient is referring to about shot in the belly button. I do not know what patient is referring to as B shots, unless she is referring to possibly vitamin B12 shots that she is getting from her PCP? This was not discussed with me during her OB visit There are specific handouts for exercise during and the packet that was given to her in office. I recommend they look at that for guidance on exercise during I do do not know anything about the conversation she overheard regarding police or social secretary.I was not part of this conversation if one was had. I did not speak to anyone about calling vascular technician orsocial services on this particular patient. * Telephone Encounter - Edith Figueroa MA - 04/28/2025 11:28 AM EDT Please advise. * Telephone Encounter - Cornelia Jensen - 04/28/2025 11:00 AM EDT Select the most appropriate reason for this telephone message: Other Who is calling (name & relationship to patient if not the patient): Patient & Father What is needed OR why are they calling: Patient and father called (on speaker phone) wanting to ask a few questions about her recent appt that they needing clarification on. - Patient asked: Do I have to go to the counselor? - What is the shot in my belly button for? What is this process exactly? What information will this give you? What could she expect from this? They would like clarification on this in general. - Pt can't remember which shots she's supposed to get that are safe during - please confirm if she's supposed to be getting what she called her B shots and anything else - General questions about exercising while - what type of exercise would be recommended andsafe to do? When is this needed by: when available Where does this information need to go: PCP Return Method of Communication: Phone Call Additional information:please advise Patient says she overheard the provider and others talking at the office and could quite hear the entire conversation but said she thought she heard something about calling the police and getting social secretary involved. They want to know if this conversation was about her? - Father very concerned about this and brought this topic back up in this phone call multiple timesabout vascular technician and social workers getting involved and that they don't need them involved and he doesn't them at his house. - He mentioned that he had a daughter who was taken from him as an due to a heart defect andwas put into foster care b/c they didn't think he could take care of the infant and he doesn't trust social workers b/c of this. After telling me this story, he then said something about maybe not mentioning it to the provider. Just fyi documented in this encounter Plan of Treatment Upcoming Encounters Date Type Department Care Team (Late st Contact Info) Description 05/25/2025 2:20 PM EDT ROUTINE FOLLOW UP OB VISIT DEBRA DANIELLE [address] [place] [id number] Mayi Downs, DO [address] [place] [address] documented as of this encounter Goals Goal Patient Goal Type Associated Problems Recent Progress Patient-Stated? Author Maintain a healthy diet, exercise regularly and maintain an ideal body weight General No Tessa Gonzalez, AILYN documented as of this encounter Visit Diagnoses Not on filedocumented in this encounter Care Teams Court Orderly Relationship Specialty Start Date End Date Tessa Gonzalez APRN [address] [place], [place] [address] PCP - General Nurse Practitioner-Family 05/01/21 documented as of this encounter
--- OUTSIDE RECORDS SUMMARY | 2025-05-02 18:08 | XMS_ITS | Encounter Summary ---
Author Organization [place] [address] Care Team Providers Care Cooper Apprentice Name Role Phone Tessa Gonzalez APRN Primary Care Provider [phone]- [phone] Encounter Details Date Type Department Care Team (Late st Contact Info) Description 04/21/2025 Results Follow-Up SEP [facility] [place] [phone] Tessa Gonzalez APRN [place] [place] [address] ACUTE HEPATITIS PANEL, HIV AG/AB, ABORH, Additional followed-up results: 6 Social History Tobacco Use Types Packs/Day Years [...] on file documented as of this encounter Plan of Treatment Upcoming Encounters Date Type Department Care Team (Late st Contact Info) Description 05/25/2025 2:20 PM EDT ROUTINE FOLLOW UP OB VISIT SEP [facility] [address] [place] [place] [phone] Mayi Downs, DO [address] [place] [place] [address] documented as of this encounter Goals Goal Patient Goal Type Associated Problems Recent Progress Patient-Stated? Author Maintain a healthy diet, exercise regularly and maintain an ideal body weight General No Tessa Gonzalez APRN documented as of this encounter Visit Diagnoses Not on filedocumented in this encounter Care Teams Cooper Apprentice Relationship Specialty Start Date End Date Tessa Gonzalez APRN [address] [place] [address] PCP - General Nurse Practitioner-Family 05/01/21 documented as of this encounter
--- OUTSIDE RECORDS SUMMARY | 2025-05-02 18:08 | XMS_ITS | Encounter Summary ---
Author Organization [place] [address] Care Team Providers Care Access Rn Name Role Phone Tessa Gonzalez AILYN Primary Care Provider [phone]- [phone] Encounter Details Date Type Department Care Team ([facility] Contact Info) Description 05/01/2025 Results Follow-Up [facility] [place] [facility] [address] [place] [address] Mayi Downs, DO [address] [place], [place] [id number] URINE CULTURE (NO STAIN), CHLAMYDIA/GC BY TMA, HUMAN CHORIONIC GONADOTROPIN QUANTITATIVE Social History Tobacco Use Types Packs/Day Years [...] on file documented as of this encounter Ordered Prescriptions Prescription Sig Dispense Quantity Refills Last Filled Start Date End Date amoxicillin-clavula mario (AUGMENTIN) 875-125 mg Oral TabletIndications:U TI (urinary tract infection), uncomplicated Take 1 Tablet by mouth every 12 hours for 5 days. 10 Tablet 05/01/2025 documented in this encounter Plan of Treatment Upcoming Encounters Date Type Department Care Team (Late Contact Info) Description 05/25/2025 2:20 PM EDT ROUTINE FOLLOW UP OB VISIT [facility] [address] [place] [phone] Mayi Downs, DO [address] [place] [address] documented as of this encounter Goals Goal Patient Goal Type Associated Problems Recent Progress Patient-Stated? Author Maintain a healthy diet, exercise regularly and maintain an ideal body weight General No Tessa Gonzalez APRN documented as of this encounter Visit Diagnoses Diagnosis UTI (urinary tract infection), uncomplicated- Primary Urinary tract infection, site not specified documented in this encounter Care Teams Access Rn Relationship Specialty Start Date End Date Tessa Gonzalez APRN [facility] [place] [address] PCP - General Nurse Practitioner-Family 05/01/21 documented as of this encounter
--- NOTE | 2025-05-02 18:21 | US_ITS ---
PROCEDURE INFORMATION: Exam: US , Transvaginal Exam date and time: 05/02/2025 7:19 PM Age: 20 years old Clinical indication: Lmp or gestational age (in weeks): Lmp: 01/26/25; Other: Bleeding; ; Additional info: R/O mab -- vaginal bleeding LABS AND CLINICAL REPORTS: Last menstrual period start date: 01/26/2025 Gestational age (Established): 13 w 5 d Estimated due date (Established): 11/02/2025 TECHNIQUE: Imaging protocol: Real-time transvaginal obstetrical ultrasound of the maternal pelvis with image documentation. Transvaginal imaging was used for better evaluation of the fetus, adnexa, and/or cervix. COMPARISON: No relevant prior studies available. FINDINGS: Gestation: Intrauterine gestation. BIOMETRY: No cardiac activity Gestational age (AUA): 8 w 6 d Estimated due date (AUA): 12/06/2025 [place] rump length (CRL): 21.7 mm. EGA (CRL) is 8 w 6 d MATERNAL: Right ovary/adnexa: Right ovary measures 3.83 cm x 1.07 cm x 1.08 cm. Right ovarian volume is 2.32 mL. Left ovary/adnexa: Left ovary measures 2.62 cm x 1.88 cm x 1.63 cm. Left ovarian volume is 4.2 mL. Trace fluid in the cul de sac IMPRESSION: No cardiac activity consistent with demise
--- NOTE | 2025-05-02 18:22 | PC.NURSE ---
I spoke with Varinder in radiology, he is going to call in US per
[2025-05-02 18:39] LABS: Hematocrit 39.5 % (37.0-47.0); Hemoglobin 14.1 g/dL (12.2-16.2); Immature Granulocytes % 0.3 %; Mean Corpuscular HGB Conc 35.7 g/dL (31.8-35.4); Mean Corpuscular Hemoglobin 30.3 pg (27.0-31.2); Mean Corpuscular Volume 84.8 fl (81-99); Nucleated Red Blood Cells % 0 %; Platelet Count 249 K/mm3 (142-424); Red Blood Count 4.66 M/mm3 (4.20-5.40); Red Cell Distribution Width-SD 35.8 fL; White Blood Count 9.4 K/mm3 (4.8-10.8)
[2025-05-02 18:45] LABS: Microscopic, Urine URINE MICROSCOPIC (MICROSCOPIC)
[2025-05-02 18:46] LABS: Bilirubin,Urine Negative (Negative); Color,Urine YELLOW (Yellow); Glucose,Urine (UA) Negative (Negative); Ketones,Urine Negative (Negative); Leukocyte Esterase,Urine 1+ (Negative); PH,Urine 6.0 (5.0-8.5); Protein,Urine Negative (Negative); Specific Gravity, Urine 1.020 (1.005-1.030); Urobilinogen,Urine 2.0 EU/dl (0.2)
[2025-05-02 18:47] LABS: Chloride 105 mmol/L (98-107)
[2025-05-02 18:48] LABS: Albumin Level 4.5 g/dl (3.5-5.0); Potassium 3.8 mmoL/L (3.5-5.1); Sodium 138 mmol/L (136-145)
[2025-05-02 18:50] LABS: Alanine Aminotransferase 16 U/L (12-78); Blood Urea Nitrogen 7 mg/dl (7-17); Creatinine Clearance Estimated 134 mL/min (50-200); Creatinine,Serum 0.60 mg/dl (0.52-1.04); Estimated Glomerular Filt Rate 126 ml/min (>60); GFR (African American) 153 ML/MIN (>60)
[2025-05-02 18:51] LABS: Albumin/Globulin Ratio 1.5 (1.1-1.8); Alkaline Phosphatase 52 U/L (38-126); Anion Gap 12.8 mEq/L (5-15); Aspartate Amino Transferase 31 U/L (14-36); Bilirubin,Total 0.5 mg/dl (0.2-1.3); Calcium 9.6 mg/dl (8.4-10.2); Carbon Dioxide 24 mmol/L (22.0-30.0); Globulin 3.0 g/dL (1.3-3.2); Glucose 114 mg/dl (74-100); INR 1.03 (0.9-1.1); Prothrombin Time 11.4 seconds (10.1-12.5); Total Protein,Serum 7.5 g/dl (6.3-8.2)
[2025-05-02 18:52] LABS: RBC,Urine Occasional #/hpf (0-3)
[2025-05-02 18:53] LABS: Bacteria,Urine 2+ /lpf
[2025-05-02 20:00] VITALS: BP 129/95; PULSE 75; RESP 15; O2SAT 100
[2025-05-02 20:30] VITALS: BP 135/80; PULSE 85; RESP 17; O2SAT 99
[2025-05-02 21:30] VITALS: BP 137/94; PULSE 86; RESP 13; O2SAT 98
[2025-05-02 22:38] VITALS: BP 128/74; PULSE 74; RESP 16; TEMP 37.1; O2SAT 98
== END 2025-05-02 22:43 | disposition home or self-care (01) ==
PROVIDERS: Emergency Provider Student in an Organized Health Care Education/Training Program
DX: O03.4 Incomplete spontaneous abortion without complication (principal); Z3A.12 12 weeks gestation of pregnancy
CPT/HCPCS: 76817; 80053; 81001; 84702; 85025; 85610; 86850; 87086; 96374; 99285

== ENCOUNTER 2025-07-03 23:12 | Emergency (ER) | payer MEDICARE, SELFPAY ==
[2025-07-03 23:19] VITALS: BP 133/111; PULSE 98; RESP 18; TEMP 36.8; O2SAT 100; BMI 21.9
--- OUTSIDE RECORDS SUMMARY | 2025-07-03 23:19 | XMS_ITS | Encounter Summary ---
Author Organization [place] [address] Care Team Providers Care Operating Room Aide Name Role Phone Tessa Gonzalez APRN Primary Care Provider [phone]- [phone] Encounter Details Date Type Department Care Team (Late st Contact Info) Description 05/01/2025 Results Follow-Up [facility] [place] [facility] [address] [place] [address] Mayi Downs, DO [address] [place], [place] [phone] URINE CULTURE (NO STAIN), CHLAMYDIA/GC BY TMA, [...] documented in this encounter Plan of Treatment Not on file documented as of this encounter Goals Goal Patient Goal Type Associated Problems Recent Progress Patient-Stated? Author Maintain a healthy diet, exercise regularly and maintain an ideal body weight General No Tessa Gonzalez APRN documented as of this encounter Visit Diagnoses Diagnosis UTI (urinary tract infection), uncomplicated- Primary Urinary tract infection, site not specified documented in this encounter Care Teams Operating Room Aide Relationship Specialty Start Date End Date Tessa Gonzalez APRN [address] [place], [place] [address] PCP - General Nurse Practitioner-Family 05/01/21 documented as of this encounter
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
--- OUTSIDE RECORDS SUMMARY | 2025-07-03 23:19 | XMS_ITS | Encounter Summary ---
Author Organization [place] [address] Care Team Providers Care E Commerce Architect Name Role Phone Tessa Gonzalez APRN Primary Care Provider [phone]- [phone] Encounter Details Date Type Department Care Team (Late st Contact Info) Description 04/21/2025 Results Follow-Up SEP Naun [address] [place] [address] Tessa Gonzalez APRN [address] [facility] [address] [place] [id number] ACUTE HEPATITIS PANEL, HIV AG/AB, ABORH, Additional [...] as of this encounter Plan of Treatment Not on file documented as of this encounter Goals Goal Patient Goal Type Associated Problems Recent Progress Patient-Stated? Author Maintain a healthy diet, exercise regularly and maintain an ideal body weight General No Tessa Gonzalez APRN documented as of this encounter Visit Diagnoses Not on filedocumented in this encounter Care Teams E Commerce Architect Relationship Specialty Start Date End Date Tessa Gonzalez APRN [address] [place], [place] [address] PCP - General Nurse Practitioner-Family 05/01/21 documented as of this encounter
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
--- OUTSIDE RECORDS SUMMARY | 2025-07-03 23:19 | XMS_ITS | Encounter Summary ---
Author Organization [place] [address] Care Team Providers Care Auto Fleet Maintenance Manager Name Role Phone Tessa Gonzalez APRN Primary Care Provider [phone] Reason for Visit * Reason Onset Date Comments Symptoms (Only Use If Pt Pushes Back On Scheduli ng A Visit) 05/05/2025 Miscarriage Encounter Details Date Type Department Care Team (Late st Contact Info) Description 05/05/2025 Telephone [facility] [address] [place] [phone] Tessa Gonzalez APRN [address] [place] [address] Symptoms (Only Use If Pt Pushes Back On Scheduling A Visit) (Miscarriage ) Social History Tobacco Use Types Packs/Day Years [...] Telephone Encounter - Edith Figueroa MA - 05/05/2025 2:07 PM EDT VM left with medical records to return my call. * Telephone Encounter - Tessa Gonzalez APRN - 05/05/2025 1:32 PM EDT DASIA[facility]icentaGraciela Edith please get her records and give to Dr. Downs for review and schedule her a follow-up. Thanks. * Telephone Encounter - Rogelio Patterson RMA - 05/05/2025 12:34 PM EDT Select the most appropriate reason for this telephone message: Symptoms Call Who is reporting the symptoms: Patient What symptom(s) is the patient experiencing: vaginal bleeding , cramping , states had a miscarriage How long have symptoms been present: on last night Has the patient been seen for this:Yes, went to ER at [facility] in [facility] Has the patient tried anything to relieve the symptoms and did it help: No If pain, what level on scale 1-10 (10 being the greatest): 9 Desired Outcome: Advice Pharmacy & Location:[id number] [place] [address] [phone] [[id number]] Return Method of Communication: Phone Call Was patient transferred to Nurse Triage for additional help? N/A Additional Information: Please Advise Patient/Caller, thank you. documented in this encounter Plan of Treatment Not on file documented as of this encounter Goals Goal Patient Goal Type Associated Problems Recent Progress Patient-Stated? Author Maintain a healthy diet, exercise regularly and maintain an ideal body weight General No Tessa Gonzalez APRN documented as of this encounter Visit Diagnoses Not on filedocumented in this encounter Care Teams Auto Fleet Maintenance Manager Relationship Specialty Start Date End Date Tessa Gonzalez APRN [address] [place] [address] PCP - General Nurse Practitioner-Family 05/01/21 documented as of this encounter
--- NOTE | 2025-07-03 23:20 | PC.NURSE ---
Pt ambulatory to room Report received from Arlette Awake alert and oriented Skin pnk warm and dry Resp full and easy Speech clear and appropriate
--- NOTE | 2025-07-03 23:58 | XR_ITS ---
PROCEDURE INFORMATION: Exam: XR Chest Exam date and time: 07/03/2025 11:55 PM Age: 20 years old Clinical indication: Pain; Cough; Chest pressure; Additional info: Cough, chest pain TECHNIQUE: Imaging protocol: Radiologic exam of the chest. Views: 2 views. COMPARISON: CR XR CHEST 2V 04/25/2019 9:41 PM FINDINGS: Lungs: Consolidation lateral periphery LEFT upper lobe. Pleural spaces: No significant pleural effusion. No pneumothorax. Heart/Mediastinum: No cardiomegaly. Bones/joints: No displaced fracture. Soft tissues: Unremarkable. IMPRESSION: Probable LEFT upper lobe pneumonia. Followup to resolution to exclude underlying pathology.
[2025-07-04] MEDS: ACETAMINOPHEN 500MG TAB 1000 MG PO (00:09)
[2025-07-04] MEDS: IBUPROFEN 600 MG TABLET PO (00:09)
--- NOTE | 2025-07-04 00:33 | [facility].EDGENADL ---
Discharge Plan Disposition Patient Disposition: Home, Self-Care Prescriptions Prescriptions: New azithromycin 250 mg tablet See Rx Instructions .ROUTE .COMPLEX Qty: 6 0RF Rx Instructions: For 250 mg dose pack: take 500 mg today (day 1), then 250 mg for 4 days (days 2-5) amoxicillin-pot clavulanate 875-125 mg tablet 1 tab PO BID 5 Days Qty: 10 0RF benzonatate 100 mg capsule 100 mg PO Q6H PRN (Reason: cough) Qty: 30 0RF No Action ondansetron 4 mg tablet,disintegrating 4 mg PO Q8H PRN (Reason: nausea and vomiting) Qty: 10 0RF methocarbamol 750 mg tablet 750 mg PO Q6H PRN (Reason: muscle spasm) Qty: 20 0RF misoprostol [Cytotec] 200 mcg tablet 1,200 mcg vaginal Q12H Qty: 6 0RF oxycodone 5 mg tablet 5 mg PO DAILY Qty: 3 0RF Referrals Follow up/Referrals: Provider,Referral, MD [Primary Care Provider, Medical] - See instructions Activity Restrictions/Add. Instructions Additional Instructions/Restrictions: Please take antibiotics as prescribed for treatment of pneumonia. You need to have a repeat of your x-ray through your primary care doctor to make sure that the pneumonia resolves. Clinical Impressions Clinical Impression: Pneumonia Qualifiers: Pneumonia type: due to unspecified organism Laterality: left Lung location: upper lobe of lung Qualified Code(s): J18.9 - Pneumonia, unspecified organism Print Language Print Language: Citizen Of [place] Discharge ED Provider: Alcides Mahajan Adult HPI General Chief complaint: Headache Stated complaint: Feeling Sick; Headache; Cough; Time Seen by Provider: 07/03/25 23:53 Mode of Arrival: Ambulatory Source of Information: Patient and Parent(s) Description of Symptoms (Recalled from ER Triage Doc. by RN): nia presents for a headache, vomiting and a cough that started this morning. patient has history of headaches and does not take anything or them. no sick contacts. History of Present Illness HPI narrative: 20-year-old female without significant past medical history presents for multiple complaints. Her primary complaint is cough worsening over the last couple of days associated with upset stomach and chest pain. She reports rib pain with coughing that has come and gone over the last couple of days. She denies any cardiac history. She reports cough is nonproductive. She reported a mild headache to me. Denies any neurochanges. Related Data Previous Rx's ?Medication ?Instructions ?Recorded ondansetron 4 mg disintegrating 4 mg PO Q8H PRN nausea and 07/09/22 tablet vomiting #10 tabs methocarbamol 750 mg tablet 750 mg PO Q6H PRN muscle spasm #20 11/22/24 tabs misoprostol 200 mcg tablet 1,200 mcg (6 x 200 mcg) vaginal 05/02/25 (Cytotec) Q12H #6 tabs oxycodone 5 mg tablet 5 mg PO DAILY #3 tabs 05/02/25 amoxicillin 875 mg-potassium 1 tab PO BID 5 days #10 tabs 07/04/25 clavulanate 125 mg tablet azithromycin 250 mg tablet See Rx Instructions PO .COMPLEX #6 07/04/25 tabs benzonatate 100 mg capsule 100 mg PO Q6H PRN cough #30 caps 07/04/25 Allergies Allergy/AdvReac Type Severity Reaction Status Date / Time No Known Allergies Allergy Verified 07/02/22 15:55 [facility] Disclaimer: The information contained in this section may have been updated after the patient was seen, as this information can be updated by other users. Medical History (Updated 07/04/25 @ 00:26 by Alcides Mahajan MD) No significant past medical history Social History Smoking Status: Never smoker alcohol intake: never current occupational status: student Travel in the last 8 weeks?: None Have you lived/traveled outside [place] in past 30 days?: No Contact w/someone who lives/traveled outside [place] past 30 days?: No Exposure to someone with infectious disease in past 14 days?: No Do you have a fever (greater than 100.4 F or 38 C)?: No Have you tested positive for COVID-19?: No Exposed to someone with COVID-19 in past 14 days?: No Do you have a sore throat?: No Do you have a cough?: Yes Do you have any weakness?: No Do you have any diarrhea?: No Are you experiencing any unusual bleeding?: No Do you have any muscle aches/pain?: No Do you have any abdominal pain?: No Are you experiencing loss of taste or smell?: No Other Medical History Have you received the Flu Vaccine for this season: No Have you received the Pneumonia Vaccine: No ROS Obtained: Yes All systems reviewed & no additional complaints except as documented Physical Exam General General appearance: alert and in no apparent distress Head Head exam: atraumatic and normocephalic Eye Eye exam: Present normal appearance, PERRL and EOMI ENT ENT exam: Present normal oropharynx and normal external ear exam Neck Neck exam: Present normal inspection and full ROM Chest Chest inspection: Present normal inspection and symmetric chest wall rise; Absent tenderness Respiratory Respiratory exam: Present normal lung sounds bilaterally; Absent respiratory distress Cardiovascular Cardiovascular exam: Present regular rate and normal rhythm Abdominal Exam Abdominal exam: Present soft; Absent distention, tenderness or guarding Extremities Exam Extremities exam: Present normal inspection; Absent edema or joint swelling Back Exam Back exam: Present normal inspection; Absent tenderness Neurological Exam Neurological exam: Present alert and oriented X3; Absent motor sensory deficit Psychiatric Psychiatric exam: Present normal affect and normal mood Skin Skin exam: Present warm, dry and normal color Lymphatic Lymphatic Findings: no adenopathy Medical Decision Making Medical Records Medical records reviewed: Yes I reviewed the patient's medical records. Screening: Per USPSTF and CDC recommendations, given the prevalence of disease in our region, it is our hospital?s policy to screen for HIV and viral Hepatitis for all patients aged 18 and over and those with ongoing risk factors. Jose Inquiry Pt receiving controlled substance: No Jose was queried for this patient: No Vital Signs: 07/03/25 23:19 07/04/25 00:55 Temperature 98.2 F 98.4 F Temperature Source Temporal Artery Scan Oral Pulse Rate 80 Pulse Rate [Right Radial] 98 H Respiratory Rate 18 20 Blood Pressure 112/71 Blood Pressure [Right Arm] 133/111 H Blood Pressure Mean [Right Arm] 118 Blood Pressure Source Automatic Cuff Blood Pressure Source [Right Arm] Automatic Cuff Blood Pressure Position Sitting Blood Pressure Position [Right Arm] Sitting 02 Sat by Pulse Oximetry 100 Oxygen Delivery Method Room Air Room Air Lab Data Lab results reviewed: Yes I reviewed the patient's lab results. Orders (Tests/Meds): ED MEDICATIONS Discontinued Medications Generic Name Dose Route Start Last Admin Trade Name Freq PRN Reason Stop Dose Admin Acetaminophen 1,000 mg 07/03/25 23:58 07/04/25 00:09 Acetaminophen 500mg Tab PO 07/03/25 23:59 1,000 mg ONCE ONE Administration Amoxicillin/Clavulanate Potassium 1 each 07/04/25 00:22 07/04/25 00:35 Amoxicillin/Clavulanate Potassium 875/125mg Tablet PO 07/04/25 00:23 1 each ONCE ONE Administration Azithromycin 500 mg 07/04/25 00:22 07/04/25 00:35 Azithromycin 250mg Tablet PO 07/04/25 00:23 500 mg ONCE ONE Administration Ibuprofen 600 mg 07/03/25 23:58 07/04/25 00:09 Ibuprofen 600 Mg Tablet PO 07/03/25 23:59 600 mg ONCE ONE Administration ORDERS Category Date Time Status CXR 2 view (NOT portable) [XR chest 2V] Stat Exams 07/03/25 23:58 Completed Medical Decision Narrative: 20-year-old female without significant past medical history presents for cough congestion and rib pain with coughing over the last couple of days as well as mild headache and mildly upset. History was obtained via interactive discussion with patient, family, chart review. On arrival, patient is [afebrile, hemodynamically stable, satting appropriately, alert, oriented x4, GCS 15], moving all extremities spontaneously. Full physical exam performed and significant for cobblestoning in the posterior oropharynx, no exudate, benign abdominal exam clear lungs bilaterally on my exam. Differential includes but is not limited to URI, viral/bacterial pneumonia, tension headache, gastroenteritis Patient was given Tylenol and ibuprofen for symptomatic management and correction of underlying abnormalities. Workup initiated including two-view chest x-ray. Patient declined a test. On re-evaluation, patient reports improvement in her symptoms Imaging independently interpreted by me and significant for left upper lobe pneumonia. See radiology read for full review of final results. Given patient history, exam and workup, patient's presentation most likely represents commune acquired pneumonia. Patient was initiated on Augmentin and azithromycin for empiric treatment. I told patient that it was important that she have a follow-up x-ray with her PCP to document resolution. Patient was agreeable to plan to discharge with coverage for commune acquired pneumonia. Procedures Risk/Benefits of Procedure(s) Were Explained: Yes Critical Care Critical Care Time Critical Care Time: No
[2025-07-04] MEDS: AMOXICILLIN/CLAVULANATE POTASSIUM 875/125MG TABLET 1 EACH PO (00:35)
[2025-07-04] MEDS: AZITHROMYCIN 250MG TABLET 500 MG PO (00:35)
[2025-07-04 00:55] VITALS: BP 112/71; PULSE 80; RESP 20; TEMP 36.9; O2SAT 97
== END 2025-07-04 00:58 | disposition home or self-care (01) ==
PROVIDERS: Emergency Provider Emergency Medicine
DX: J18.9 Pneumonia, unspecified organism (principal); R07.9 Chest pain, unspecified; R51.9 Headache, unspecified
CPT/HCPCS: 71046; 99283